=== PATIENT | male | born 1975 | race Caucasian/White ===

== ENCOUNTER → 2017-11-17 15:17 | Outpatient (CLI) | payer MEDICAID ==
[~2017-11-17 15:17] MED LIST: FLOMAX0.4 MG PO; IBUPROFEN400 MG PO
[2017-11-24 11:35] VITALS: BMI 35.4
== END | disposition home or self-care (01) ==
LOC: D.CT 15:17
DX: R10.9 Unspecified abdominal pain (principal)

== ENCOUNTER 2017-11-17 18:10 | Observation (INO) | payer MEDICAID ==
[~2017-11-17] VITALS: Ht 188 cm; Wt 122.7 kg
--- NOTE | ~2017-11-17 | OP ---
PATIENT NAME: JODI UGARTE MEDICAL RECORD: [id number] :77 LOCATION:[id number] ADMISSION DATE:11/17/17 SURGEON: JAVIER HERMOSILLO MD DATE OF OPERATION: 11/18/2017 SURGEON: Javier Hermosillo MD ANESTHESIA: General anesthesia by Dr. Leonel Mendoza. DIAGNOSIS: A-4mm right UPJ stone. PROCEDURES: Cystoscopy, right ureteroscopy, right ureteral stent insertion 6-Filipino x 28 with string attached, and right retrograde pyelogram. FINDINGS: Radiodense right UPJ stone, 4 mm. BLOOD LOSS: None. CLINICAL HISTORY: This is a 42-year-old male with a previous history of kidney stones, which he last past 8 years ago. He complained of right flank pain of acute onset since yesterday. He had a CT scan performed, which showed a 4-mm stone in the right UP junction. He comes to have the stone removed via surgery today. He is not allergic to any medications. He was given Ancef 2 grams IV motion graphics artist to the OR. DESCRIPTION OF PROCEDURE: The patient was given induction of general anesthesia. He was then placed into dorsal lithotomy position and prepped and draped. A 21-Filipino cystoscope with 30-degree lens was used for visualization. Penile urethra was normal. Prostatic urethra was nonobstructive. He has single ureteral orifices on each side. No bladder tumors were seen. On fluoroscopy, we could see the possible stone at the top of the L2 vertebral body level. In order to confirm this, a retrograde pyelogram was performed by injecting diluted contrast into the right ureteral orifice. This confirmed that the radiodensity we are seeing was indeed the ureteral stone. I then placed a Sensor wire and a Glidewire up the ureter into the renal pelvis. I decided to try to dilate the tract over the Glidewire. A ureteral access sheath 08/25 was placed over the Glidewire. At the distal one-third of the ureter, I could not advance the access sheath any further. 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 At this point, the Glidewire and the trocar of the access sheath was removed. The rigid ureteroscope was placed. We were able to get past the stricture zone and up to the UP junction. The scope was able to just reach the area where the stone was previously located. However, on reviewing the fluoroscopy again, we noted that the stone had now moved into the kidney. I then placed another Sensor wire through the ureteroscope lumen into the renal pelvis, so that we had 2 wires in the ureter. The ureteroscope was then backed out leaving the [address]. I again tried to dilate the tract with the ureteral access sheath, but again I was unsuccessful in getting past the distal ureteral area. At this point, I decided to abandon further attempts for nephroscopy using a flexible ureteroscope. Instead, the second wire was completely removed. Over the remaining wire, we backloaded into the cystoscope, I inserted a stent. A 6-Filipino x 28 cm ureteral stent was placed. Once the stent was in correct position, the wire was completely removed. The distal end of the stent was pushed into the bladder using a pusher. The bladder was emptied completely through the scope and then the scope was removed, leaving the stent in place. OPERATIVE REPORT [id number] JODI UGARTE The string on the distal end of stent is maintained and it hangs out of the urethra. It was tied to itself and cut shorter. I will discharge the patient home today and we will set him up for lithotripsy as an outpatient. TRANSINT:[id number] Voice Confirmation ID: [id number] DOCUMENT ID: [id number] JAVIER HERMOSILLO MD at 1302 CC: [id number] DICTATION DATE: 11/18/17 1051 TRUCK ENGINE TECHNICIAN: 11/18/17 1133 ADM IN [facility] [address] [place] [address]
[2017-11-17 18:56] LABS: BASOPHILS 0.2 % (0-2); EOSINOPHILS 0.4 % (0-7); HEMOGLOBIN 14.8 g/dL (13.5-17.5); IMMATURE GRANULOCYTES 0.2 % (0-5); LYMPHOCYTES 15.2 % (15-50); MCHC 34.4 g/dL (31.0-37.0); MCV 84.3 fL (80.0-100.0); MEAN PLATELET VOLUME 9.7 fL (7.4-10.4); MONOCYTES 7.8 % (2-11); NEUTROPHILS 76.2 % (40-80); PLATELET COUNT 195 10x3/uL (130-400); RDW 13.5 % (11.5-14.5); WBC 8.1 10x3/uL (4.8-10.8)
[2017-11-17 19:28] LABS: ALBUMIN 3.9 g/dL (3.4-5.0); ANION GAP 14.1 mmol/L (8-16); BILIRUBIN - TOTAL 0.75 mg/dL (0.2-1.3); CARBON DIOXIDE 26.9 mmol/L (21.0-32.0); CREATININE - SERUM 1.2 mg/dL (0.6-1.3); PROTEIN - SERUM 7.4 g/dL (6.4-8.2)
[2017-11-17 20:00] VITALS: BP 155/88
[2017-11-17] MEDS ORDERED: IBUPROFEN400 MG PO (23:36)
[2017-11-17 23:56] VITALS: BP 155/88; BMI 34.7
[2017-11-18] VITALS: BP 153/77
[2017-11-18 04:00] VITALS: BP 138/81
[2017-11-18 08:05] VITALS: BP 156/95
[2017-11-18 08:29] VITALS: Ht 188 cm; Wt 122.7 kg
[2017-11-18 11:10] VITALS: BP 118/74
== END 2017-11-18 15:56 | disposition home or self-care (01) ==
LOC: OBSVTIME 18:10 → D.MS 18:10
PROVIDERS: Family Medicine
DX: R10.31 Right lower quadrant pain (principal); N20.1 Calculus of ureter; Z01.812 Encounter for preprocedural laboratory examination

== ENCOUNTER 2017-11-24 10:05 | Day surgery (SDC) | payer MEDICAID ==
[~2017-11-24] VITALS: Ht 188 cm; Wt 124.7 kg
--- NOTE | ~2017-11-24 | OP ---
PATIENT NAME: JODI UGARTE MEDICAL RECORD: [id number] :77 LOCATION:[facility] ADMISSION DATE: SURGEON: TAMARA HERMOSILLO MD DATE OF OPERATION: 11/24/2017 SURGEON: Tamara Hermosillo MD ANESTHESIA: MAC by Jasmine Lerma CRNA PREOPERATIVE DIAGNOSIS: Right renal stone, 4 mm. POSTOPERATIVE DIAGNOSIS: Right renal stone, 4 mm. PROCEDURE: Right ESWL times 3000 shocks. FINDINGS: Radiodense right renal stone. ESTIMATED BLOOD LOSS: None. CLINICAL HISTORY: This is a 42-year-old male with a previous history of kidney stones. He presented with acute right flank pain from a 4 mm stone at the right UP junction. He had a right ureteral stent inserted. He now comes to have right lithotripsy. Because of the presence of the stent, we gave him gentamicin 80 mg IV conference specialist to the OR. DESCRIPTION OF PROCEDURE: The patient was placed on the treatment table. The stone was targeted in 2 planes and 3000 shocks were given to the stone. In spite of the shocks given, the stone did not visibly break up. I will see the patient back in followup with [facility] in 1 week's time. If the stone is unchanged at that point, then I will have to make arrangements for ureteroscopy to remove the stone. TRANSINT:[id number] Voice Confirmation ID: [id number] DOCUMENT ID: [id number] TAMARA HERMOSILLO MD at 1032 CC: [id number] DICTATION DATE: 11/24/17 1245 EMBOSSING MACHINE OPERATOR: 11/24/17 1254 [facility] 11/24/17 [place] [id number]
[~2017-11-24 10:05] MED LIST changes: -FLOMAX0.4 MG PO
[2017-11-24] MEDS ORDERED: FLOMAX0.4 MG PO (11:31)
[2017-11-24 11:35] VITALS: BP 148/96; Ht 188 cm; Wt 124.7 kg
== END 2017-11-24 13:38 | disposition home or self-care (01) ==
LOC: D.OPS 10:05
DX: N20.0 Calculus of kidney (principal); Z87.442 Personal history of urinary calculi; Z01.812 Encounter for preprocedural laboratory examination

== ENCOUNTER → 2017-12-01 14:30 | Outpatient (CLI) | payer MEDICAID ==
[2017-11-24 11:35] VITALS: BMI 35.4
[~2017-12-01 14:30] MED LIST changes: +FLOMAX0.4 MG PO
== END | disposition home or self-care (01) ==
LOC: D.RAD 13:00
DX: N20.0 Calculus of kidney (principal)